=== PATIENT | male | born 2000 | race African-American/Black ===

== ENCOUNTER 2020-12-05 17:15 | Emergency (ER) | payer BC, SELFPAY ==
[2020-12-05 17:23] VITALS: BP 128/69; PULSE 97; RESP 16; TEMP 37.2; O2SAT 100
--- NOTE | 2020-12-05 18:17 | ED_ITS ---
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 Patient states she has a 1 to 2-day worsening of a least a 1- 2-week history of right knee pain that is mild, worse with motion, better at rest and located somewhat at the patellar tendon like jumper's knee. Patient states has been more active in preparation for team tryouts; and his orthopedic history remarkable for a previous fracture of his opposite left knee.. No lockup, sig. left knee pain, edema giveaway, injury but there is some tenderness. Discussed therapy exercises/warm up, change in workout routine. Related Data Home Medications Medication Instructions Recorded Confirmed albuterol mcg INHALATION 12/05/20 Allergies Allergy/AdvReac Type Severity Reaction Status Date / Time peanut Allergy Anaphylaxis Verified 12/05/20 17:25 Review of Systems Review of Systems: General/Constitutional: No weight loss,fever Eyes: N0: Redness,discharge Ears/Nose/Throat: No: Epistaxis,ear discharge Respiratory: Denies: Hemoptysis Gastrointestinal: No Vomiting, Bleeding-rectal Skin: No Lumps, eruption Neurologic: No Focal Weakness,Sz Hematologic: Denies: Petechiae/Purpura Psychiatric: No: Suicida ideationl All Other Systems: Reviewed and Negative PMFSH Comments At time of signature, agree with nursing past medical, surgical, social and family history. There is no relevant family history pertinent to the presenting complaint Exam Narrative: General Appearance: Well appearing, conjunctiva clear Mouth/Throat: Normal appearing, Normal lips, Supple Respiratory: Airway patent, No respiratory distress MS knee: Normal strength (mostly intact, limited flexion/extension by pain), Tenderness (anterior , with mild decreased ROM), no swelling , Other (no anterior drawer, no collateral laxity, normal Wale, pivot shift) Skin: Warm, Dry, Normal color Neurological: A&O x3, Speech clear, CN II-XII intact Psychiatric: Normal mood, Normal affect Course Vital Signs Vital signs: Vital Signs Temperature 98.9 F 12/05/20 17:23 Pulse Rate 97 12/05/20 17:23 Respiratory Rate 16 12/05/20 17:23 Blood Pressure 128/69 12/05/20 17:23 Pulse Oximetry 100 12/05/20 17:23 Temperature 98.9 F 12/05/20 17:23 Pulse Rate 97 12/05/20 17:23 Respiratory Rate 16 12/05/20 17:23 Blood Pressure 128/69 12/05/20 17:23 Pulse Oximetry 100 12/05/20 17:23 Discharge Plan Discharge Clinical Impression: Derangement of knee, right Patient Disposition: Home, Self-Care Condition: Stable Instructions: Knee Pain (ED) Prescriptions: New prednisone 20 mg tablet 60 mg PO DAILY Qty: 15 RF: 0 tramadol 50 mg tablet 50 - 75 mg PO TID PRN (Reason: pain) Qty: 20 RF: 0 No Action albuterol 90 mcg/actuation Aerosol INHALATION RF: 0 Follow-up/Referrals: PHYSICIAN,SYSTEMS DEVELOPMENT CONSULTANT [Primary Care Provider] -
== END 2020-12-05 18:20 | disposition home or self-care (01) ==
PROVIDERS: Emergency Provider Emergency Medicine
DX: M23.91 Unspecified internal derangement of right knee (principal); J45.909 Unspecified asthma, uncomplicated
CPT/HCPCS: 99213; G0463

== ENCOUNTER 2021-02-10 15:36 | Emergency (ER) | payer BC, SELFPAY ==
--- NOTE | 2021-02-10 15:40 | ED.URI ---
HPI - URI/Sore Throat General Chief Complaint: Upper Respiratory Infection Stated Complaint: SORE THROAT Time Seen by Provider: 02/10/21 15:40 Source: patient and RN notes reviewed History of Present Illness HPI Narrative: Patient is a 20-year-old male who presents the urgent care with complaints of a sore throat for the last 2 days. Patient's that he has been using warm water, Tylenol and Mucinex for his symptoms. Denies of any known exposure to Covid or strep. Patient has had a Covid vaccine. Denies of any fever, chills, nausea, vomiting. No other acute complaints. No acute distress noted. Patient aware of the plan of care. Some parts of this dictation were generated by voice recognition software and may contain typographical and/or grammatical inaccuracies. Related Data Home Medications Medication Instructions Recorded Confirmed albuterol mcg INHALATION 12/05/20 Allergies Allergy/AdvReac Type Severity Reaction Status Date / Time peanut Allergy Anaphylaxis Verified 12/05/20 17:25 Review of Systems Review of Systems: CONSTITUTIONAL: Denies fever, chills, or sweats. EYES: Denies visual changes, redness, or discharge. ENT: Denies rhinorrhea, congestion, or otalgia. Reports of sore throat CARDIOVASCULAR: Denies chest pain, palpitations, or edema. RESPIRATORY: Denies cough or dyspnea. GASTROINTESTINAL: Denies abdominal pain, nausea, vomiting, or diarrhea. GENITOURINARY: Denies dysuria or hematuria. SKIN: Denies rash or itching. MUSCULOSKELETAL: Denies back pain, joint pain, or myalgia. NEUROLOGIC: Denies headache, numbness, or weakness. All other systems reviewed are negative, except as documented in HPI. PMFSH Comments At the time of my signature, I reviewed and agree with the nursing past medical, surgical, social, and family history. There is no relevant family history pertinent to the patient complaint. Exam Narrative: GENERAL: This is a well-nourished, well-developed patient, in no apparent distress. HEAD: normocephalic, atraumatic. EYES: PERRL. Sclera clear/white. Vision is grossly intact. EARS: External ears normal, auditory canals clear and without drainage, TMs normal without perforation. Hearing grossly intact. NOSE: External nose normal with no obvious nasal discharge, nares without redness, no rhinorrhea. THROAT: Mucous membranes moist, moderate erythema noted to posterior oropharynx with mild bilateral tonsillar erythema/edema with moderate exudate to the left. Moderate postnasal drainage NECK: Neck supple, non-tender without lymphadenopathy CARDIOVASCULAR: Regular rate and rhythm without murmurs, gallops, or rubs. RESPIRATORY: Clear to auscultation. Breath sounds equal bilaterally. No wheezes, rales, or rhonchi. SKIN: warm, intact with no suspicious lesions or rash, good texture and turgor. NEURO: awake, alert, and oriented to person, place and time. There were no obvious focal neurologic abnormalities. EXTREMITIES: No clubbing, cyanosis, or edema. Course Vital Signs Vital signs: Vital Signs Temperature 99.3 F 02/10/21 15:45 Pulse Rate 84 02/10/21 15:45 Respiratory Rate 16 02/10/21 15:45 Blood Pressure 148/80 H 02/10/21 15:45 Pulse Oximetry 100 02/10/21 15:45 Temperature 99.3 F 02/10/21 15:45 Pulse Rate 84 02/10/21 15:45 Respiratory Rate 16 02/10/21 15:45 Blood Pressure 148/80 H 02/10/21 15:45 Pulse Oximetry 100 02/10/21 15:45 Reviewed-patient is informed that they may have pre-hypertension or hypertension based on a blood pressure reading in the department. I recommend the patient call the primary care provider listed on their discharge instructions or a physician of their choice this week to arrange follow-up for further evaluation of possible pre-hypertension or hypertension. MDM - URI/Sore Throat MDM Narrative Medical decision making narrative: Reviewed lab results with the patient. He is aware that strep swab was negative. Educated patient on culture and
[2021-02-10 15:45] VITALS: BP 148/80; PULSE 84; RESP 16; TEMP 37.4; O2SAT 100
== END 2021-02-10 16:13 | disposition home or self-care (01) ==
PROVIDERS: Emergency Provider Nurse Practitioner Family
DX: J02.9 Acute pharyngitis, unspecified (principal)
CPT/HCPCS: 87081; 87880; 99213; G0463